=== PATIENT | male | born 1990 | race African-American/Black ===

== ENCOUNTER 2019-04-21 19:30 | Emergency (ER) | payer BC ==
[~2019-04-21] VITALS: Ht 180.3 cm; Wt 76.7 kg
[2019-04-21 19:37] VITALS: BP 114/61
[2019-04-21] MEDS ORDERED: PENICILLIN G BENZATHINE L-A 1.2 MU/2 ML SYR IM ONE (20:25)
[2019-04-21 21:45] VITALS: BP 119/58
== END 2019-04-21 21:45 | disposition home or self-care (01) ==
LOC: MED 19:30
DX: A64 Unspecified sexually transmitted disease (principal); A53.9 Syphilis, unspecified
CPT/HCPCS: 81002; 96372; 99283; J0561